=== PATIENT | female | born 1965 | race African-American/Black ===

== ENCOUNTER 2018-06-19 16:00 | Outpatient (RCR) | payer OTHER | END 2018-06-21 | disposition home or self-care (01) | LOC: WSPT | DX: Z47.1 Aftercare following joint replacement surgery (principal); Z96.651 Presence of right artificial knee joint; Z79.899 Other long term (current) drug therapy | CPT/HCPCS: G8978-GP; G8979-GP ==

== ENCOUNTER → 2020-03-12 | Outpatient (CLI) | payer OTHER | LOC: COL.RAD 03-05 08:15 | DX: R94.5 Abnormal results of liver function studies (principal) ==

== ENCOUNTER → 2020-08-18 | Outpatient (CLI) | payer OTHER ==
[2020-08-18 11:09] LABS: MEAN CELL VOLUME 81 fl (80.0-100.0); MEAN CORPUSCULAR HGB CONC 33 g/dl (33.0-37.0); MEAN PLATELET VOLUME 11.3 fl (7.4-10.4); PLATELET COUNT 254 K/mm3 (130-400); RED BLOOD COUNT 3.63 M/mm3 (4.10-5.30); REDCELL DISTRIBUTION WIDTH-CV 16.6 % (11.5-14.5)
[2020-08-18 11:12] LABS: HEMATOCRIT 29.5 % (37.0-47.0); HEMOGLOBIN 9.8 g/dl (12.5-16.0); MEAN CORPUSCULAR HEMOGLOBIN 27 pg (27.0-31.0)
[2020-08-18 11:19] LABS: ALBUMIN 3.8 gm/dL (3.5-5.0); BILIRUBIN,TOTAL 1.9 mg/dL (0.0-1.0); CALCIUM 9.1 mg/dL (8.4-10.2); CREATININE, serum 0.52 (0.52-1.25); POTASSIUM 4.3 mmol/L (3.4-5.0); TOTAL PROTEIN 7.6 gm/dL (6.4-8.2)
[2020-08-18 11:37] LABS: INR 1.3 (0.8-3.0); PROTHROMBIN TIME 14.8 SECONDS (9.7-12.8)
== END ==
LOC: COL.RAD 09:39
PROVIDERS: Internal Medicine Gastroenterology
DX: K74.60 Unspecified cirrhosis of liver (principal)

== ENCOUNTER 2020-11-29 11:24 | Emergency (ER) | payer OTHER ==
[~2020-11-29] VITALS: Ht 180.3 cm; Wt 70.9 kg
[2020-11-29 11:53] LABS: COLLECTION METHOD CATHETER
[2020-11-29 11:58] LABS: BASO # 0.1 (0.0-0.2); BASO % 0.4 % (0.0-2.0); EOS # 0.1 (0.0-0.7); EOS % 0.6 % (0-4.0); GRAN # 10.2 (1.4-6.5); GRAN % 75.2 % (42.2-75.2); LYMPH % 14.8 % (20.0-51.0); MEAN CELL VOLUME 89 fl (80.0-100.0); MEAN CORPUSCULAR HGB CONC 32 g/dl (33.0-37.0); MONO # 1.2 (0.1-0.6); MONO % 8.5 % (1.7-9.3); PLATELET COUNT 254 K/mm3 (130-400); RED BLOOD COUNT 2.13 M/mm3 (4.10-5.30); REDCELL DISTRIBUTION WIDTH-CV 18.4 % (11.5-14.5)
[2020-11-29 12:00] LABS: HEMOGLOBIN 6.1 g/dl (12.5-16.0); MEAN CORPUSCULAR HEMOGLOBIN 29 pg (27.0-31.0)
[2020-11-29 12:04] LABS: PROTHROMBIN TIME 22.1 SECONDS (9.7-12.8)
[2020-11-29 12:08] LABS: MUCOUS Present /lpf; PH 5 (5-8); SQUAMOUS EPITHELIAL None Seen /hpf; URINE APPEARANCE Clear; URINE BACTERIA None Seen /hpf; URINE BILIRUBIN Positive (NEGATIVE); URINE BLOOD Negative (NEGATIVE); URINE COLOR Amber; URINE GLUCOSE Negative (NEGATIVE); URINE KETONE Trace (NEGATIVE); URINE LEUKOCYTE ESTERASE Negative (NEGATIVE); URINE NITRATE Negative (NEGATIVE); URINE PROTEIN(semi-quant) 1+ (NEGATIVE); URINE RBC 0-2 /hpf; URINE UROBILINOGEN >=4.0 mg/dL (NEGATIVE)
[2020-11-29 12:11] LABS: ALANINE AMINOTRANSFERASE 33 U/L (4-34); ALBUMIN 2.6 gm/dL (3.5-5.0); ALKALINE PHOSPHATASE 119 U/L (50-136); ANION GAP 19 mmol/L (7-16); AST,SGOT 86 U/L (15-37); BILIRUBIN,TOTAL 3.1 mg/dL (0.0-1.0); BLOOD UREA NITROGEN 15 mg/dL (7-17); CALCIUM 7.3 mg/dL (8.4-10.2); CARBON DIOXIDE 25 mmol/L (22-30); CHLORIDE 97 mmol/L (98-107); CREATINE KINASE 41 U/L (30-135); CREATININE, serum 0.45 (0.52-1.25); GLUCOSE 94 mg/dL (74-106); LIPASE 31 U/L (23-300); SODIUM 141 mmol/L (137-145); TOTAL PROTEIN 6.7 gm/dL (6.4-8.2)
[2020-11-29 12:13] LABS: ALCOHOL(ethanol),MEDICAL < 10 mg/dL
[2020-11-29 12:15] LABS: POTASSIUM 2.2 mmol/L (3.4-5.0)
[2020-11-29 12:23] LABS: TROPONIN-I < 0.012 ng/mL (0.000-0.035)
[2020-11-29 12:31] LABS: ARTERIAL BLD GAS O2 SATURATION 98.5 % (92-100); ARTERIAL BLD GAS TCO2 CT 21.7; ARTERIAL BLOOD GAS BASE EXCESS 0.4 (-2-2); ARTERIAL BLOOD GAS HCO3 21.1 meq/L (22-26); ARTERIAL BLOOD GAS PO2 116.8 mmHg (80-100)
[2020-11-29 12:32] LABS: ARTERIAL BLOOD GAS PCO2 21.9 mmHg (35-45)
[2020-11-29 13:57] VITALS: BP 117/84; PULSE 90; TEMP 98
[2020-11-29 14:35] VITALS: BP 108/79; PULSE 106; TEMP 98
[2020-11-29 15:45] VITALS: BP 131/89; PULSE 100; TEMP 98
[2020-11-29 16:25] VITALS: BP 117/84; PULSE 90
== END 2020-11-29 16:25 | disposition short-term general hospital (02) ==
LOC: COL.ER 11:24
PROVIDERS: Emergency Medicine; Nurse Practitioner
DX: K92.2 Gastrointestinal hemorrhage, unspecified (principal); E87.6 Hypokalemia; I95.9 Hypotension, unspecified; D64.9 Anemia, unspecified; Z88.8 Allergy status to other drugs, medicaments and biological substances; Z20.822 Contact with and (suspected) exposure to COVID-19
CPT/HCPCS: C9113; J0330; J0696; J2250; J2354; J2370; J2405; J3010; J3480; J7030; J7040; J7050; P9016

== ENCOUNTER → 2020-12-14 | Outpatient (REF) ==
[~2020-12-14] MED LIST: CARAFATE 1GM1 G PO; DINO-LIFE1 CTB PO; FOLIC ACID 40400 MCG PO; K-TAB20 PO; LASIX 40MG TABL40 MG PO; MAALOX ADVANCED1 CTB PO; NATURE'S BLEND100 M2 PO; NEXIUM ORA40 MG/Pack PEG; PROAIR HFA0.09 MG/AC IH; PROZAC 20MG20 MG PO; REMERON SOLTAB30 MG PO; ROXICODONE 55 MG/TAB PO; TYLENOL 325MG325 MG PO; VITAMIN B-625 MG; ZOFRAN INJ4 MG/2 ML IV
[2020-12-14 11:47] LABS: BASO # 0.1 (0.0-0.2); EOS # 0.1 (0.0-0.7); EOS % 1.3 % (0-4.0); GRAN # 5.5 (1.4-6.5); GRAN % 65.7 % (42.2-75.2); LYMPH % 23.2 % (20.0-51.0); MEAN CELL VOLUME 88 fl (80.0-100.0); MEAN CORPUSCULAR HGB CONC 34 g/dl (33.0-37.0); MONO # 0.7 (0.1-0.6); MONO % 8.6 % (1.7-9.3); PLATELET COUNT 140 K/mm3 (130-400); RED BLOOD COUNT 2.53 M/mm3 (4.10-5.30); REDCELL DISTRIBUTION WIDTH-CV 17.1 % (11.5-14.5)
[2020-12-14 11:55] LABS: HEMATOCRIT 22.3 % (37.0-47.0); HEMOGLOBIN 7.5 g/dl (12.5-16.0); MEAN CORPUSCULAR HEMOGLOBIN 30 pg (27.0-31.0)
[2020-12-14 11:56] LABS: ANION GAP 4 mmol/L (7-16); CALCIUM 7.4 mg/dL (8.4-10.2); CARBON DIOXIDE 25 mmol/L (22-30); CHLORIDE 109 mmol/L (98-107); CREATININE, serum 0.41 (0.52-1.25); GLUCOSE 64 mg/dL (74-106); POTASSIUM 3.6 mmol/L (3.4-5.0); SODIUM 137 mmol/L (137-145)
[2020-12-14 11:59] LABS: BLOOD UREA NITROGEN < 2 mg/dL (7-17)
== END ==
LOC: ZLAB.STJ 11:42
PROVIDERS: Family Medicine
DX: K26.9 Duodenal ulcer, unspecified as acute or chronic, without hemorrhage or perforation (principal)

== ENCOUNTER → 2020-12-17 | Outpatient (CLI) | payer OTHER ==
[2020-12-17 13:52] LABS: BASO # 0.1 (0.0-0.2); BASO % 1.3 % (0.0-2.0); EOS # 0.2 (0.0-0.7); EOS % 1.5 % (0-4.0); GRAN % 70.2 % (42.2-75.2); HEMATOCRIT 25.7 % (37.0-47.0); HEMOGLOBIN 8.1 g/dl (12.5-16.0); LYMPH % 19.7 % (20.0-51.0); MEAN CELL VOLUME 89 fl (80.0-100.0); MEAN CORPUSCULAR HEMOGLOBIN 28 pg (27.0-31.0); MEAN CORPUSCULAR HGB CONC 32 g/dl (33.0-37.0); MEAN PLATELET VOLUME 14.3 fl (7.4-10.4); MONO # 0.7 (0.1-0.6); PLATELET COUNT 172 K/mm3 (130-400); REDCELL DISTRIBUTION WIDTH-CV 17.2 % (11.5-14.5)
[2020-12-17 13:56] LABS: ANION GAP 6 mmol/L (7-16); CALCIUM 7.4 mg/dL (8.4-10.2); CARBON DIOXIDE 25 mmol/L (22-30); CHLORIDE 106 mmol/L (98-107); CREATININE, serum 0.51 (0.52-1.25); GLUCOSE 104 mg/dL (74-106); SODIUM 137 mmol/L (137-145)
[2020-12-17 13:57] LABS: BLOOD UREA NITROGEN < 2 mg/dL (7-17)
[2020-12-17 14:02] LABS: POTASSIUM 2.5 mmol/L (3.4-5.0)
== END ==
LOC: ZLAB.STJ 13:17
PROVIDERS: Family Medicine
DX: D62 Acute posthemorrhagic anemia (principal)

== ENCOUNTER → 2020-12-21 | Outpatient (REF) ==
[2020-12-21 13:13] LABS: BASO # 0.1 (0.0-0.2); BASO % 0.9 % (0.0-2.0); EOS # 0.1 (0.0-0.7); GRAN # 5.9 (1.4-6.5); GRAN % 66.5 % (42.2-75.2); LYMPH # 2.1 (1.2-3.4); LYMPH % 23.7 % (20.0-51.0); MEAN CELL VOLUME 87 fl (80.0-100.0); MEAN CORPUSCULAR HGB CONC 32 g/dl (33.0-37.0); MEAN PLATELET VOLUME 12.8 fl (7.4-10.4); MONO # 0.7 (0.1-0.6); MONO % 7.4 % (1.7-9.3); PLATELET COUNT 166 K/mm3 (130-400); RED BLOOD COUNT 2.76 M/mm3 (4.10-5.30)
[2020-12-21 13:14] LABS: HEMATOCRIT 24.1 % (37.0-47.0); HEMOGLOBIN 7.8 g/dl (12.5-16.0); MEAN CORPUSCULAR HEMOGLOBIN 28 pg (27.0-31.0)
[2020-12-21 13:21] LABS: ANION GAP 5 mmol/L (7-16); CALCIUM 7.2 mg/dL (8.4-10.2); CARBON DIOXIDE 27 mmol/L (22-30); CHLORIDE 105 mmol/L (98-107); CREATININE, serum 0.46 (0.52-1.25); GLUCOSE 120 mg/dL (74-106); SODIUM 137 mmol/L (137-145)
[2020-12-21 13:26] LABS: BLOOD UREA NITROGEN < 2 mg/dL (7-17)
[2020-12-21 13:27] LABS: POTASSIUM 2.6 mmol/L (3.4-5.0)
== END ==
LOC: ZLAB.STJ 13:07
PROVIDERS: Family Medicine
DX: E87.6 Hypokalemia (principal)

== ENCOUNTER → 2020-12-24 | Outpatient (CLI) | payer OTHER ==
[2020-12-24 16:25] LABS: ALANINE AMINOTRANSFERASE 35 U/L (4-34); ALBUMIN 2.2 gm/dL (3.5-5.0); ALKALINE PHOSPHATASE 132 U/L (50-136); ANION GAP 7 mmol/L (7-16); AST,SGOT 65 U/L (15-37); BILIRUBIN,TOTAL 2.4 mg/dL (0.0-1.0); CALCIUM 7.7 mg/dL (8.4-10.2); CARBON DIOXIDE 25 mmol/L (22-30); CHLORIDE 106 mmol/L (98-107); CREATININE, serum 0.55 (0.52-1.25); GLUCOSE 118 mg/dL (74-106); POTASSIUM 3.5 mmol/L (3.4-5.0); SODIUM 138 mmol/L (137-145); TOTAL PROTEIN 6.6 gm/dL (6.4-8.2)
[2020-12-24 16:26] LABS: BLOOD UREA NITROGEN < 2 mg/dL (7-17)
== END ==
LOC: ZLAB.STJ 13:19
PROVIDERS: Family Medicine
DX: K70.9 Alcoholic liver disease, unspecified (principal); F10.20 Alcohol dependence, uncomplicated; K91.2 Postsurgical malabsorption, not elsewhere classified; I27.20 Pulmonary hypertension, unspecified; D62 Acute posthemorrhagic anemia; E87.6 Hypokalemia; E55.9 Vitamin D deficiency, unspecified; D52.0 Dietary folate deficiency anemia; E44.0 Moderate protein-calorie malnutrition; F32.9 Major depressive disorder, single episode, unspecified; R57.1 Hypovolemic shock; K25.2 Acute gastric ulcer with both hemorrhage and perforation; R26.1 Paralytic gait; R26.81 Unsteadiness on feet; Z98.84 Bariatric surgery status; Z79.899 Other long term (current) drug therapy

== ENCOUNTER → 2020-12-28 | Outpatient (CLI) | payer OTHER ==
[2020-12-28 10:25] LABS: BASO # 0.1 (0.0-0.2); BASO % 1.1 % (0.0-2.0); EOS # 0.1 (0.0-0.7); EOS % 0.7 % (0-4.0); GRAN # 6.6 (1.4-6.5); GRAN % 67.9 % (42.2-75.2); LYMPH # 2.2 (1.2-3.4); LYMPH % 22.9 % (20.0-51.0); MEAN CELL VOLUME 84 fl (80.0-100.0); MEAN CORPUSCULAR HGB CONC 33 g/dl (33.0-37.0); MONO # 0.7 (0.1-0.6); PLATELET COUNT 109 K/mm3 (130-400); RED BLOOD COUNT 2.75 M/mm3 (4.10-5.30); REDCELL DISTRIBUTION WIDTH-CV 17.1 % (11.5-14.5)
[2020-12-28 10:28] LABS: ANION GAP 8 mmol/L (7-16); CALCIUM 7.7 mg/dL (8.4-10.2); CARBON DIOXIDE 24 mmol/L (22-30); CHLORIDE 104 mmol/L (98-107); CREATININE, serum 0.58 (0.52-1.25); GLUCOSE 78 mg/dL (74-106); POTASSIUM 3.9 mmol/L (3.4-5.0); SODIUM 136 mmol/L (137-145)
[2020-12-28 10:30] LABS: BLOOD UREA NITROGEN < 2 mg/dL (7-17)
[2020-12-28 11:57] LABS: HEMATOCRIT 23.1 % (37.0-47.0); HEMOGLOBIN 7.5 g/dl (12.5-16.0); MEAN CORPUSCULAR HEMOGLOBIN 27 pg (27.0-31.0)
== END ==
LOC: ZLAB.STJ 09:49
PROVIDERS: Family Medicine
DX: I27.20 Pulmonary hypertension, unspecified (principal)

== ENCOUNTER → 2020-12-31 | Outpatient (CLI) | payer OTHER ==
[2020-12-31 17:04] LABS: BASO # 0.1 (0.0-0.2); BASO % 0.8 % (0.0-2.0); EOS # 0.1 (0.0-0.7); EOS % 0.6 % (0-4.0); GRAN # 8.9 (1.4-6.5); GRAN % 72.6 % (42.2-75.2); LYMPH # 2.3 (1.2-3.4); MEAN CELL VOLUME 82 fl (80.0-100.0); MEAN CORPUSCULAR HGB CONC 33 g/dl (33.0-37.0); MONO # 0.8 (0.1-0.6); MONO % 6.5 % (1.7-9.3); PLATELET COUNT 134 K/mm3 (130-400); RED BLOOD COUNT 2.98 M/mm3 (4.10-5.30); REDCELL DISTRIBUTION WIDTH-CV 17.3 % (11.5-14.5)
[2020-12-31 17:06] LABS: HEMATOCRIT 24.3 % (37.0-47.0); MEAN CORPUSCULAR HEMOGLOBIN 27 pg (27.0-31.0)
[2020-12-31 17:09] LABS: CALCIUM 7.7 mg/dL (8.4-10.2); CREATININE, serum 0.84 (0.52-1.25); POTASSIUM 3.7 mmol/L (3.4-5.0)
== END ==
LOC: ZLAB.STJ 16:44
PROVIDERS: Family Medicine
DX: E87.6 Hypokalemia (principal)

== ENCOUNTER 2021-01-02 08:02 | Inpatient (IN) | payer OTHER ==
[2021-01-02] VITALS (313 sets, daily range): BP systolic 87–115; BP diastolic 51–73; PULSE 113–132; TEMP 97.2–99; O2SAT 32–100
[~2021-01-02] VITALS: Ht 167.6 cm; Wt 94.5 kg
[2021-01-02 08:25] LABS: BASO # 0.1 (0.0-0.2); BASO % 0.9 % (0.0-2.0); EOS % 0.4 % (0-4.0); GRAN # 8.2 (1.4-6.5); GRAN % 72.1 % (42.2-75.2); LYMPH # 2.1 (1.2-3.4); LYMPH % 18.3 % (20.0-51.0); MEAN CELL VOLUME 80 fl (80.0-100.0); MEAN CORPUSCULAR HGB CONC 34 g/dl (33.0-37.0); MONO # 0.9 (0.1-0.6); MONO % 7.5 % (1.7-9.3); PLATELET COUNT 129 K/mm3 (130-400); RED BLOOD COUNT 2.85 M/mm3 (4.10-5.30); REDCELL DISTRIBUTION WIDTH-CV 17.6 % (11.5-14.5)
[2021-01-02 08:27] LABS: HEMATOCRIT 22.9 % (37.0-47.0); HEMOGLOBIN 7.7 g/dl (12.5-16.0); MEAN CORPUSCULAR HEMOGLOBIN 27 pg (27.0-31.0)
[2021-01-02 08:39] LABS: ALBUMIN 2.2 gm/dL (3.5-5.0); CALCIUM 7.6 mg/dL (8.4-10.2); CREATININE, serum 0.97 (0.52-1.25); POTASSIUM 3.3 mmol/L (3.4-5.0); TOTAL PROTEIN 7.3 gm/dL (6.4-8.2)
[2021-01-02 09:00] LABS: MUCOUS Present /lpf; PH 5 (5-8); SQUAMOUS EPITHELIAL 0-2 /hpf; URINE APPEARANCE Hazy; URINE BACTERIA Many /hpf; URINE BILIRUBIN Positive (NEGATIVE); URINE BLOOD 1+ (NEGATIVE); URINE COLOR Amber; URINE GLUCOSE Negative (NEGATIVE); URINE KETONE Negative (NEGATIVE); URINE LEUKOCYTE ESTERASE Trace (NEGATIVE); URINE NITRATE Negative (NEGATIVE); URINE PROTEIN(semi-quant) 1+ (NEGATIVE); URINE UROBILINOGEN >=4.0 mg/dL (NEGATIVE)
[2021-01-02 09:12] LABS: BILIRUBIN UNCONJUGATED 1.3 mg/dL (0.0-1.1); BILIRUBIN,TOTAL 3.3 mg/dL (0.0-1.0)
[2021-01-02 09:54] LABS: ARTERIAL BLD GAS O2 SATURATION 94.2 % (92-100); ARTERIAL BLD GAS TCO2 CT 22.6; ARTERIAL BLOOD GAS HCO3 21.7 meq/L (22-26); ARTERIAL BLOOD GAS PCO2 28.5 mmHg (35-45); ARTERIAL BLOOD GAS PO2 71.6 mmHg (80-100)
[2021-01-02 11:35] LABS: PERITONEAL -POLYMORPHONUCLEAR 36.4 % (0-25); PERITONEAL FLUID RBC 1000 /mm3 (0-0)
[2021-01-02] MEDS ORDERED: PROAIR HFA0.09 MG/AC IH (11:43)
[2021-01-02] MEDS ORDERED: NEXIUM ORA40 MG/Pack PEG (11:44)
[2021-01-02] MEDS ORDERED: PROZAC 20MG20 MG PO (11:45)
[2021-01-02] MEDS ORDERED: FOLIC ACID 40400 MCG PO (11:45)
[2021-01-02] MEDS ORDERED: REMERON SOLTAB30 MG PO (11:46)
[2021-01-02] MEDS ORDERED: ZOFRAN INJ4 MG/2 ML IV (11:47)
[2021-01-02] MEDS ORDERED: ROXICODONE 55 MG/TAB PO (11:48)
[2021-01-02] MEDS ORDERED: CARAFATE 1GM1 G PO (11:48)
[2021-01-02] MEDS ORDERED: NATURE'S BLEND100 M2 PO (11:49)
[2021-01-02] MEDS ORDERED: VITAMIN B-625 MG (11:49)
[2021-01-02] MEDS ORDERED: TYLENOL 325MG325 MG PO (11:50)
[2021-01-02] MEDS ORDERED: LASIX 40MG TABL40 MG PO (11:52)
[2021-01-02] MEDS ORDERED: K-TAB20 PO (11:52)
--- NOTE | 2021-01-02 13:00 | NUR ---
PT ARRIVED FROM ED FOR WEAKNESS, AMS, SEPSIS. PT IS LETHARGIC. PT RESPONDS TO VOICE AND CAN FOLLOW SOME COMMANDS. PT UNABLE TO STATE BIRTHDAY, TODAYS DATE OR LOCATION. PT'S BP IN THE 80'S, ST ON TELE IN THE 120'S AND BG 69. CALLED AND NOTIFIED. ORDER FOR NS BOLUS 500. WILL CONTINUE TO [facility].
[2021-01-02] MEDS ORDERED: DINO-LIFE1 CTB PO (14:14)
[2021-01-02] MEDS ORDERED: MAALOX ADVANCED1 CTB PO (14:15)
[2021-01-02 15:00] LABS: INR 3.9 (0.8-3.0); PROTHROMBIN TIME 43.8 SECONDS (9.7-12.8)
--- NOTE | 2021-01-02 15:35 | NUR ---
BEDSIDE TO EVALUATE PT.
--- NOTE | 2021-01-02 17:00 | NUR ---
[facility] MEDICAL RECORDS CALLED AND MESSAGE LEFT FOR REQUEST FOR RECORDS. WILL ENDORSE TO FOLLOWING RN TO FOLLOW UP.
--- NOTE | 2021-01-02 20:00 | NUR ---
Assessment complete. Pt is resting in the bed moaning and appears uncomfortable. Reposonsive to voice but will not answer questions. Pt repositioned in bed. Call light within reach.
[2021-01-03] VITALS (535 sets, daily range): BP systolic 93–118; BP diastolic 57–74; PULSE 106–117; TEMP 95.6–98.5; O2SAT 94–100
[2021-01-03 05:39] LABS: BASO # 0.1 (0.0-0.2); BASO % 0.5 % (0.0-2.0); EOS # 0.1 (0.0-0.7); EOS % 0.6 % (0-4.0); GRAN # 7.3 (1.4-6.5); GRAN % 75.4 % (42.2-75.2); LYMPH # 1.8 (1.2-3.4); LYMPH % 18.5 % (20.0-51.0); MEAN CELL VOLUME 79 fl (80.0-100.0); MEAN CORPUSCULAR HGB CONC 35 g/dl (33.0-37.0); MONO # 0.4 (0.1-0.6); MONO % 4.3 % (1.7-9.3); PLATELET COUNT 79 K/mm3 (130-400); RED BLOOD COUNT 2.83 M/mm3 (4.10-5.30); REDCELL DISTRIBUTION WIDTH-CV 17.8 % (11.5-14.5)
[2021-01-03 05:45] LABS: HEMATOCRIT 22.3 % (37.0-47.0); HEMOGLOBIN 7.7 g/dl (12.5-16.0); MEAN CORPUSCULAR HEMOGLOBIN 27 pg (27.0-31.0)
[2021-01-03 05:49] LABS: INR 3.8 (0.8-3.0); PROTHROMBIN TIME 43.3 SECONDS (9.7-12.8)
[2021-01-03 05:51] LABS: BILIRUBIN,TOTAL 3.3 mg/dL (0.0-1.0); CALCIUM 7.1 mg/dL (8.4-10.2); CREATININE, serum 0.92 (0.52-1.25); MAGNESIUM 1.6 mg/dL (1.6-2.3); POTASSIUM 4.2 mmol/L (3.4-5.0); TOTAL PROTEIN 6.5 gm/dL (6.4-8.2)
--- NOTE | 2021-01-03 08:00 | NUR ---
Report recieved from Daniel OLEA all questions answered. Patient found laying in bed asleep. Arroused to speech, moaning. Does not answered questions appropriately, responds with moans. Patient remains tachycardic at this time, HR 107. Heart sounds regular, lung sounds diminished in bilateral bases, bowel sounds active. Stomach distended and firm, bandaid noted CDI. IV fluids infusing to left forearm without difficulty. Bilateral SCD in place +2 edema noted to lower extremities. Blood sugar 72. All safety maintained. Will continue to monitor.
--- NOTE | 2021-01-03 09:22 | NUR ---
DURING PHYSICAL THERAPY PATIENT MOANING AND SAYING "OW". CONTINUES TO MOAN FOLLOWING SESSION. MEDICATION GIVEN PER ORDERS. WILL CONTINUE TO MONITOR.
--- NOTE | 2021-01-03 09:57 | NUR ---
JOSÉ spoke with patient's sister Shilpa (p# [phone]) and mother Cassie (same #) who are driving to [place] from [place]. Patient lives independently and alone at home in [place]. Patient does not have DPOA at this time. Patient is unable to appropriate answer questions or fill out paperwork. [facility] Patient uses no DME per family recollection. Patient is not able to verbalize plan. Family would like the hospital to have patient transferred to [place] for care. JOSÉ reported that she would be able to speak with RN, MD, and JOSÉ's cook supervisor regarding request; however, this may not be feasible. Family is adamant that they want her transferred and feel JOSÉ, as showcase maker, should be able to coordinate these services. JOSÉ spoke with cook supervisor Saima, who will communicate with the family on Thursday 01/04. Social work will continue to follow.
[2021-01-03 09:59] LABS: COLLECTION METHOD CATHETER
--- NOTE | 2021-01-03 11:20 | NUR ---
Rectal tube instered per MD orders for administration of Lactulose. Patient is refusing PO fluids at this time.
--- NOTE | 2021-01-03 13:30 | NUR ---
Paitient brought down to CT via bed for CT of head without difficulty. Patient placed back in room 6 on monitors, vital signs stable.
--- NOTE | 2021-01-03 14:30 | NUR ---
MD made aware of low urinary output. Orders recieved for 500ml bolus of NS followed by infusing at 125ml hr. Orders read back and confirmed. Will continue to monitor.
--- NOTE | 2021-01-03 16:30 | NUR ---
MD made aware of blood sugar of 60. Administer 1amp of Dextrose now and switch IV fluids to D5 1/2 NS at 100ml/hr. Orders read back and confirmed.
--- NOTE | 2021-01-03 18:15 | NUR ---
MD made aware of lack of output. No new orders at this time. Will continue to monitor.
[2021-01-04] VITALS (603 sets, daily range): BP systolic 92–115; BP diastolic 69–89; PULSE 100–107; TEMP 97–97.8; O2SAT 70–100
--- NOTE | 2021-01-04 00:22 | NUR ---
Prior to taking over care, pt has been yelling out and moaning incomprehensible sounds. Pt now able to make eye contact and yell out "help me, help me, mommy help me". Reorientation provided with no recall. MARÍA Arvizu aware. During turns and blood sugar check attempts, pt becomes very aggitated flailing arms and legs and turning self left and right in bed.
[2021-01-04 05:36] LABS: BASO # 0.1 (0.0-0.2); BASO % 0.6 % (0.0-2.0); EOS # 0.1 (0.0-0.7); EOS % 0.6 % (0-4.0); GRAN # 8.7 (1.4-6.5); GRAN % 70.9 % (42.2-75.2); LYMPH # 2.5 (1.2-3.4); LYMPH % 20.1 % (20.0-51.0); MEAN CELL VOLUME 80 fl (80.0-100.0); MEAN CORPUSCULAR HGB CONC 34 g/dl (33.0-37.0); MONO # 0.9 (0.1-0.6); MONO % 7.5 % (1.7-9.3); RED BLOOD COUNT 3.27 M/mm3 (4.10-5.30); REDCELL DISTRIBUTION WIDTH-CV 18.5 % (11.5-14.5)
--- NOTE | 2021-01-04 05:40 | NUR ---
SpO2 86-88% on 2L NC. Pt drowsy from IV morphine. Pt able to wake up, open eyes, no change in previous neuro assessement - however prior to administering IV morphine pt able to speak clearly and complain of back and abdominal pain. Prior to this, pt only yelled and moaned out loudly with incomprehensible words. Pt breathing through mouth - oxymask 6L/min applied - MARÍA Arvizu and YudithRT notified. SpO2 now 95-99%
[2021-01-04 05:43] LABS: INR 3.1 (0.8-3.0); PROTHROMBIN TIME 34.9 SECONDS (9.7-12.8)
[2021-01-04 05:44] LABS: CALCIUM 7.3 mg/dL (8.4-10.2); CREATININE, serum 1.06 (0.52-1.25); MAGNESIUM 1.7 mg/dL (1.6-2.3); POTASSIUM 3.4 mmol/L (3.4-5.0); TOTAL PROTEIN 6.6 gm/dL (6.4-8.2)
[2021-01-04 05:49] LABS: HEMATOCRIT 26.3 % (37.0-47.0); HEMOGLOBIN 8.9 g/dl (12.5-16.0); MEAN CORPUSCULAR HEMOGLOBIN 27 pg (27.0-31.0)
[2021-01-04 05:52] LABS: PLATELET COUNT 55 K/mm3 (130-400)
--- NOTE | 2021-01-04 07:00 | NUR ---
Report received from EMMIE Crooks. pT in bed resting with eyes closed, will conitnue to monitor.
--- NOTE | 2021-01-04 09:00 | NUR ---
Assessment charted. Pt turned for comfort, rectal tube draining meier clear stool to DD in bag at side of bed, regalado draining dark cloudy urine to DD in bag at side of bed. Pt able to verbalize back pain, PRN morphine provided per request. Pt tolerated well and appears much more comfortable within 30 minutes of medication. Abd is distended and firm, hypoactive bowel sounds throughout. Generalized edema to body of +2 and BLE +3. IVF to LFA with potassium chloride infusing as well. Sister at bedside. Pt not able to answer any orientation questions, did nod head yes when asked if she wanted glasses on so she appears to be able to comprehend and respond to some simple questions but not resopnding to orientation questions.
--- NOTE | 2021-01-04 11:27 | NUR ---
Loading Machine Adjuster attended clinical rounds with the team. The patient's sister, Ileana was present. Ileana would like the patient transferred to the [facility] for further care. JOSÉ contacted Nathaly [facility] student development coordinator. Nathaly requested clinical information then a decision will be made. JOSÉ faxed patient clinical information to Nathaly. Nathaly reports the patient may be responsible for the transporation cost. JOSÉ updated Ileana with the above information. JOSÉ collaborated the above information with the team. [facility].
--- NOTE | 2021-01-04 13:04 | NUR ---
Went into room with student nreric to place NG tube, pt able to arouse to us and when asked if we could place the tube she stated "no", asked her three more times and clearly she responded "no", when asked where we are she states "hospital". Called [facility] and called family and the family does not want to force the NG if she is conscious enough to refuse. Will continue to monitor.
--- NOTE | 2021-01-04 13:51 | NUR ---
Romana RN from the [facility] contacted this Associate Financial Advisor regarding the patient transfer. Romana reports they [facility] is unable to accept the patient for transfer due to her level of care. JOSÉ contacted the patient's sister, Ileana to provide update. JOSÉ collaborated the above information to the hospitalist and the patient's nurse.
--- NOTE | 2021-01-04 17:05 | NUR ---
Pt turned on L side and provided lactulose enema. Pt tolerating well, will wait 1 hour before releasing clamp on rectal tube to maximize ammonia absorption.
--- NOTE | 2021-01-04 18:30 | NUR ---
Pt has been more alert this afternoon, able to answer some questions but still moaning often and not able to respond to orientation questions. Resting in bed, turned q2h for shift. Rectal tube draining meier liquid stool. Small amount of very dark urine out over shift. Will monitor and give report to nightshift nurse who will resume care.
--- NOTE | 2021-01-04 20:00 | NUR ---
Assessment complete. Pt is lying in the bed with occassional moaning noted. Repositioned in bed. Call light within reach.
[2021-01-05] VITALS (647 sets, daily range): BP systolic 88–111; BP diastolic 61–81; PULSE 101–108; TEMP 97.4–97.6; O2SAT 74–100
[2021-01-05 06:11] LABS: BASO # 0.1 (0.0-0.2); BASO % 0.6 % (0.0-2.0); EOS # 0.1 (0.0-0.7); EOS % 0.8 % (0-4.0); GRAN % 69.6 % (42.2-75.2); LYMPH # 2.3 (1.2-3.4); LYMPH % 19.7 % (20.0-51.0); MEAN CELL VOLUME 80 fl (80.0-100.0); MEAN CORPUSCULAR HGB CONC 33 g/dl (33.0-37.0); MONO % 8.4 % (1.7-9.3); PLATELET COUNT 94 K/mm3 (130-400); RED BLOOD COUNT 3.12 M/mm3 (4.10-5.30); REDCELL DISTRIBUTION WIDTH-CV 18.9 % (11.5-14.5)
[2021-01-05 06:16] LABS: HEMATOCRIT 24.9 % (37.0-47.0); HEMOGLOBIN 8.3 g/dl (12.5-16.0); MEAN CORPUSCULAR HEMOGLOBIN 27 pg (27.0-31.0)
[2021-01-05 06:25] LABS: CALCIUM 7.4 mg/dL (8.4-10.2); CREATININE, serum 0.97 (0.52-1.25); POTASSIUM 4.4 mmol/L (3.4-5.0)
--- NOTE | 2021-01-05 07:30 | NUR ---
Patient resting in bed. Moaning occasionally out loud and also with any touching of lower exremities. Patient able to tell this nurse that she was in the hospital and was able to wiggle her toes and squeeze this nurses's hands on command. Was not able to anwer any other questions or follow any other commands at this time.
--- NOTE | 2021-01-05 10:33 | NUR ---
Daughter at bedside; updated on plan of care. Discussed insertion of a picc line for TPN administration. Daughter agreeable and will sign consent form.
[2021-01-05 11:12] LABS: ALBUMIN 1.8 gm/dL (3.5-5.0); BILIRUBIN,TOTAL 2.4 mg/dL (0.0-1.0); CALCIUM 7.5 mg/dL (8.4-10.2); CREATININE, serum 0.98 (0.52-1.25); MAGNESIUM 1.9 mg/dL (1.6-2.3); PHOSPHOROUS 4.1 mg/dL (2.5-4.5); POTASSIUM 4.5 mmol/L (3.4-5.0); TOTAL PROTEIN 5.9 gm/dL (6.4-8.2)
[2021-01-05 11:20] LABS: PRE ALBUMIN 3.5 mg/dL (17.6-36.0)
--- NOTE | 2021-01-05 13:09 | NUR ---
Dr. Lam at bedside discussing plan of care with patient's sister.
--- NOTE | 2021-01-05 14:17 | NUR ---
German with [facility] contacted this Grinding Supervisor [facility] patient[facility] JOSÉ faxed updates to German.
[2021-01-06] VITALS (841 sets, daily range): BP systolic 88–103; BP diastolic 61–71; PULSE 93–111; TEMP 97.2–97.9; O2SAT 82–99
[2021-01-06 04:59] LABS: BASO # 0.1 (0.0-0.2); BASO % 0.9 % (0.0-2.0); EOS # 0.2 (0.0-0.7); EOS % 1.6 % (0-4.0); GRAN # 6.1 (1.4-6.5); GRAN % 63.3 % (42.2-75.2); LYMPH # 2.1 (1.2-3.4); LYMPH % 21.6 % (20.0-51.0); MEAN CELL VOLUME 80 fl (80.0-100.0); MEAN CORPUSCULAR HGB CONC 33 g/dl (33.0-37.0); MONO # 1.2 (0.1-0.6); MONO % 12.2 % (1.7-9.3); PLATELET COUNT 59 K/mm3 (130-400); RED BLOOD COUNT 2.59 M/mm3 (4.10-5.30); REDCELL DISTRIBUTION WIDTH-CV 18.5 % (11.5-14.5)
[2021-01-06 05:02] LABS: HEMATOCRIT 20.7 % (37.0-47.0); MEAN CORPUSCULAR HEMOGLOBIN 27 pg (27.0-31.0)
[2021-01-06 05:03] LABS: HEMOGLOBIN 6.9 g/dl (12.5-16.0)
[2021-01-06 05:10] LABS: CALCIUM 7.3 mg/dL (8.4-10.2); CREATININE, serum 0.84 (0.52-1.25); MAGNESIUM 1.8 mg/dL (1.6-2.3); PHOSPHOROUS 3.6 mg/dL (2.5-4.5); POTASSIUM 3.7 mmol/L (3.4-5.0)
[2021-01-06 05:16] LABS: PRE ALBUMIN 3.1 mg/dL (17.6-36.0)
--- NOTE | 2021-01-06 07:30 | NUR ---
Resting in bed; moans when touched or cares are provided, otherwise appears to be resting comforably. Will open eyes and will squeeze hands on command but does not answer verbal questions appropriately. Will continue to monitor.
--- NOTE | 2021-01-06 10:00 | NUR ---
Patient appears slightly more alert than yesterday. Able to stay awake longer when being addressed. Also able to answer a few questions and engage in brief conversations with this nurse. Will continue to monitor.
--- NOTE | 2021-01-06 12:56 | NUR ---
Speech therapist at bedside to attempt swallow study.
[2021-01-06 13:17] LABS: HEMATOCRIT 22.3 % (37.0-47.0); HEMOGLOBIN 7.2 g/dl (12.5-16.0)
[2021-01-06 13:23] LABS: INR 2.7 (0.8-3.0); PROTHROMBIN TIME 30.8 SECONDS (9.7-12.8)
--- NOTE | 2021-01-06 13:30 | NUR ---
Per speech therapist will continue to keep NPO, but will encourage mouth swabs to keep mouth moist. Will attempt swallow eval again tomorrow.
--- NOTE | 2021-01-06 19:10 | NUR ---
Received report from EMMIE Payan. Patient resting quietly in bed watching TV. Patient opening eyes spontaneously and following verbal commands. She is alert and conversing with staff. Some confused speech noted. Vitals within normal limits. Reports pain in legs; she is repositioned for comfort. Oral care performed. No further needs noted at this time.
--- NOTE | 2021-01-06 19:15 | NUR ---
Report given to EMMIE Mello. Patient care transfered.
[2021-01-07] VITALS (377 sets, daily range): BP systolic 78–111; BP diastolic 36–63; PULSE 100–117; TEMP 97.4–99.1; O2SAT 92–98
[2021-01-07 05:26] LABS: BASO # 0.1 (0.0-0.2); BASO % 0.9 % (0.0-2.0); EOS # 0.1 (0.0-0.7); EOS % 1.3 % (0-4.0); GRAN # 6.4 (1.4-6.5); GRAN % 62.5 % (42.2-75.2); LYMPH # 2.2 (1.2-3.4); LYMPH % 21.4 % (20.0-51.0); MEAN CELL VOLUME 82 fl (80.0-100.0); MEAN CORPUSCULAR HGB CONC 33 g/dl (33.0-37.0); MONO # 1.4 (0.1-0.6); MONO % 13.4 % (1.7-9.3); PLATELET COUNT 55 K/mm3 (130-400); RED BLOOD COUNT 2.61 M/mm3 (4.10-5.30); REDCELL DISTRIBUTION WIDTH-CV 18.6 % (11.5-14.5)
[2021-01-07 05:29] LABS: HEMATOCRIT 21.5 % (37.0-47.0); HEMOGLOBIN 7.1 g/dl (12.5-16.0); MEAN CORPUSCULAR HEMOGLOBIN 27 pg (27.0-31.0)
[2021-01-07 05:40] LABS: CALCIUM 7.5 mg/dL (8.4-10.2); CREATININE, serum 0.81 (0.52-1.25); MAGNESIUM 1.9 mg/dL (1.6-2.3); PHOSPHOROUS 2.9 mg/dL (2.5-4.5); POTASSIUM 4.3 mmol/L (3.4-5.0)
--- NOTE | 2021-01-07 07:00 | NUR ---
REPORT RECEIVED FROM GAVIOTA OLEA. PT RESTING IN BED. TPN RUNNING THROUGH PICC. VSS. WILL CONTINUE TO MONITOR.
--- NOTE | 2021-01-07 10:09 | NUR ---
Retail Field Merchandiser staffed with Dr. Bishop and he requested a referral be sent to [facility]. Referral faxed. JOSÉ then contacted Richard with [facility], he will review the referral then inform JOSÉ of decision.
--- NOTE | 2021-01-07 11:12 | NUR ---
The patient has orders to transfer to the medical floor. JOSÉ faxed updates to German at [facility].
--- NOTE | 2021-01-07 11:12 | NUR ---
REPORT GIVEN TO MICHELLE AND HIS STUDENT OSMANI. ALL QUESIONS ANSWERED. PT TRANSFERED TO FLOOR BED AND TAKEN UPSTAIRS BY MICHELLE.
--- NOTE | 2021-01-07 12:26 | NUR ---
Oral care given, wiped down patient's face for comfort measures, sister at bedside.
[2021-01-07 20:28] LABS: HEMATOCRIT 20.2 % (37.0-47.0); HEMOGLOBIN 6.3 g/dl (12.5-16.0)
--- NOTE | 2021-01-07 20:28 | NUR ---
CRITICAL LAB- HEMOGLOBIN 6.3 ORDERS NOTED
[2021-01-08] VITALS (15 sets, daily range): BP systolic 80–101; BP diastolic 51–65; PULSE 105–116; TEMP 98.1–98.7
--- NOTE | 2021-01-08 00:52 | NUR ---
BLOOD TRANSFUSION COMPLETE AT 0006 ON 01/08/2021. PATIENT TOLERATED WELL. NO ADVERSE REACTION NOTED OR REPORTED BY PATIENT.
[2021-01-08 01:46] LABS: HEMATOCRIT 21.6 % (37.0-47.0); HEMOGLOBIN 7.2 g/dl (12.5-16.0)
[2021-01-08 06:47] LABS: MEAN CELL VOLUME 84 fl (80.0-100.0); MEAN CORPUSCULAR HGB CONC 32 g/dl (33.0-37.0); PLATELET COUNT 51 K/mm3 (130-400); RED BLOOD COUNT 2.55 M/mm3 (4.10-5.30)
[2021-01-08 06:52] LABS: HEMATOCRIT 21.4 % (37.0-47.0); HEMOGLOBIN 6.9 g/dl (12.5-16.0); MEAN CORPUSCULAR HEMOGLOBIN 27 pg (27.0-31.0)
[2021-01-08 06:55] LABS: ALBUMIN 1.5 gm/dL (3.5-5.0); BILIRUBIN,TOTAL 2.7 mg/dL (0.0-1.0); CALCIUM 7.3 mg/dL (8.4-10.2); CREATININE, serum 0.81 (0.52-1.25); POTASSIUM 4.7 mmol/L (3.4-5.0); TOTAL PROTEIN 4.9 gm/dL (6.4-8.2)
[2021-01-08 07:00] LABS: INR 2.6 (0.8-3.0); PROTHROMBIN TIME 28.9 SECONDS (9.7-12.8)
[2021-01-08 07:37] LABS: BAND 3 % (0-10); LYMPHOCYTE 14 % (20.0-51.0); NEUTROPHILS 81 % (42.0-75.2); NUCLEATED RED BLOOD CELL 1 (0-6); PLATELET ESTIMATE DECREASED (NORMAL)
[2021-01-08 07:38] LABS: SCHISTOCYTES 1+; TARGET CELLS 2+
--- NOTE | 2021-01-08 07:57 | NUR ---
Pt has a student nurse caring for her today, pt is laying in bed upon entry. She arouses to voice, shakes her head no when asked in pain. Is unable to tell me where she is. TPN infusing into R PICC without complications. Shane catheter DD, rectal tube in place. Continues to have liquid stool output. Small tear in tubing but manageable at this time. SCD's in place, repositioning complete.
--- NOTE | 2021-01-08 09:27 | NUR ---
Richard with [facility] contacted this Wood Machinist regarding authorization. Richard reports that will not review the case until Monday, 01/11. Richard would like updates on Monday and he will tentatively visit the patient on Monday. JOSÉ collaborated the above information with medical floor JOSÉ.
--- NOTE | 2021-01-08 10:14 | NUR ---
Rectal tube replaced, d/t tear in tubing. Pt tolerated okay. Does have enlarged hemmorhoids which made it uncomfortable to change. Repositioning provided. Pt calmed down at this time. POC discussed with the sister.
--- NOTE | 2021-01-08 13:47 | NUR ---
Primary nurse was assisted with [id number] patient care by [employer] [employer] [employer] [facility] [employer] student Yoselin Rosario and [facility] [employer] [facility] [employer] instructor Kamini Gayle MSN, RN.
--- NOTE | 2021-01-08 13:59 | NUR ---
Primary nurse was assisted with [id number] patient care by [facility] student Kisha Bains and [facility] instructor Kamini Gayle MSN, RN.
--- NOTE | 2021-01-08 15:05 | NUR ---
Blood transfusion started. Patient VS monitored and stable. IV CDI. Call light within reach
[2021-01-08 16:13] LABS: HEMATOCRIT 25.3 % (37.0-47.0); HEMOGLOBIN 8.2 g/dl (12.5-16.0)
--- NOTE | 2021-01-08 16:46 | NUR ---
Sat Math Tutor faxed updates to German at [facility]. JOSÉ updated Hospitalist that patient will not have auth at [facility] over the weekend.
--- NOTE | 2021-01-08 19:21 | NUR ---
Patient completed one unit blood transfusion and tolerated well VSS. IV CDI. Rectal tube intact and regalado edgardo urine, clear. HOB elevated. No further needs expressed from the patient. Call light within reach
[2021-01-09] VITALS (127 sets, daily range): BP systolic 87–111; BP diastolic 20–76; PULSE 87–123; TEMP 97.5–98.2; O2SAT 93–100
[2021-01-09 05:48] LABS: MEAN CELL VOLUME 86 fl (80.0-100.0); MEAN CORPUSCULAR HGB CONC 32 g/dl (33.0-37.0); REDCELL DISTRIBUTION WIDTH-CV 18.4 % (11.5-14.5)
[2021-01-09 05:49] LABS: HEMOGLOBIN 8.1 g/dl (12.5-16.0); MEAN CORPUSCULAR HEMOGLOBIN 28 pg (27.0-31.0)
[2021-01-09 05:52] LABS: PLATELET COUNT 47 K/mm3 (130-400)
[2021-01-09 05:59] LABS: ALBUMIN 1.7 gm/dL (3.5-5.0); BILIRUBIN,TOTAL 2.9 mg/dL (0.0-1.0); CALCIUM 7.6 mg/dL (8.4-10.2); CREATININE, serum 0.8 (0.52-1.25); MAGNESIUM 2.3 mg/dL (1.6-2.3); PHOSPHOROUS 3.3 mg/dL (2.5-4.5); POTASSIUM 4.8 mmol/L (3.4-5.0); TOTAL PROTEIN 5.6 gm/dL (6.4-8.2)
--- NOTE | 2021-01-09 08:00 | NUR ---
Patient sitting up in bed, eyes open. Does not respond to verbal command, alert, but unresponsive. VSS. IV CDI, fluids infusing. Rectal tube CDI, patent. Patient repositioned on left side. Heels floated. Patient total care provided. HOB elevated. Call light within reach
--- NOTE | 2021-01-09 17:14 | NUR ---
Patient has labored breathing and O2 sats in low 80's-90's. Dr Conrad notified and RT notified. Will continue to monitor. Sister at bedside and aware. Call light within reach
[2021-01-09 17:38] LABS: ARTERIAL BLD GAS O2 SATURATION 82.6 % (92-100); ARTERIAL BLD GAS TCO2 CT 22.6; ARTERIAL BLOOD GAS BASE EXCESS 0.8 (-2-2); ARTERIAL BLOOD GAS HCO3 21.8 meq/L (22-26); ARTERIAL BLOOD GAS PCO2 24.9 mmHg (35-45); ARTERIAL BLOOD GAS pH 7.56 (7.35-7.45)
[2021-01-09 17:39] LABS: ARTERIAL BLOOD GAS PO2 45.3 mmHg (80-100)
--- NOTE | 2021-01-09 18:11 | NUR ---
Oxymask placed on the patient and continued monitoring of O2 sats. 7L O2. Patient placed on right side. Rectal tube advanced and sterile water added to the balloon. Patient still nonresponsive, but eyes still open. Doctor aware of the ABG results. Family at the bedside most of the shift. Call light within reach. Door left open
--- NOTE | 2021-01-09 19:22 | NUR ---
CALLED BY RN FOR STAT ABG. OBTAINED AND RESULTS IN PT CHART. DUE TO RESULTS AND PT ON 15 LPM VIA OXYMASK PLACED PT ON AIRVO AND PT ON AT 60 LPM AND 90% FI02. SATURATIONS INCREASED TO THE MID 90'S.
--- NOTE | 2021-01-09 19:22 | NUR ---
VIKRAM BRISENO APRN NOTIFIED OF PATIENTS CONDITION. VIKRAM BRISENO APRN IS COMING TO PATIENTS ROOM TO ASSESS THE PATIENT.
[2021-01-09 19:43] LABS: ARTERIAL BLD GAS O2 SATURATION 86.4 % (92-100); ARTERIAL BLD GAS TCO2 CT 22.6; ARTERIAL BLOOD GAS BASE EXCESS 1.2 (-2-2); ARTERIAL BLOOD GAS HCO3 21.9 meq/L (22-26); ARTERIAL BLOOD GAS pH 7.59 (7.35-7.45)
[2021-01-09 19:44] LABS: ARTERIAL BLOOD GAS PCO2 23.3 mmHg (35-45); ARTERIAL BLOOD GAS PO2 48.7 mmHg (80-100)
[2021-01-09 21:35] LABS: BASO # 0.1 (0.0-0.2); BASO % 0.6 % (0.0-2.0); EOS # 0.1 (0.0-0.7); EOS % 0.6 % (0-4.0); GRAN # 8.8 (1.4-6.5); GRAN % 69.7 % (42.2-75.2); LYMPH % 15.7 % (20.0-51.0); MEAN CELL VOLUME 86 fl (80.0-100.0); MEAN CORPUSCULAR HGB CONC 32 g/dl (33.0-37.0); MONO # 1.6 (0.1-0.6); MONO % 12.8 % (1.7-9.3); PLATELET COUNT 50 K/mm3 (130-400); RED BLOOD COUNT 3.15 M/mm3 (4.10-5.30); REDCELL DISTRIBUTION WIDTH-CV 19.4 % (11.5-14.5)
[2021-01-09 21:37] LABS: HEMATOCRIT 27.1 % (37.0-47.0); HEMOGLOBIN 8.7 g/dl (12.5-16.0); MEAN CORPUSCULAR HEMOGLOBIN 28 pg (27.0-31.0)
[2021-01-09 21:39] LABS: ALBUMIN 1.9 gm/dL (3.5-5.0); BILIRUBIN,TOTAL 2.9 mg/dL (0.0-1.0); CALCIUM 7.9 mg/dL (8.4-10.2); CREATININE, serum 1.01 (0.52-1.25); POTASSIUM 4.8 mmol/L (3.4-5.0); TOTAL PROTEIN 6.1 gm/dL (6.4-8.2)
--- NOTE | 2021-01-09 21:43 | NUR ---
Patient was brought down by Monalisa OLEA at 845pm. She was not alert or oriented. She eyes were dialated but responsive. She was on Airvo and oxygen saturation was 98%. Her blood pressure was 111/71. She was rapidly blinking her eyes but not responding to commands. She gazes both eyes to the left but never straight ahead or to the right. He eyes doesn't follow commands either. At 2100 the Anesthsiologist arrived for a Rapid Intubation. Two RT's was at the bedside along with Daniel OLEA and myself. The patient was being bagged and intubation was complete by 2106. The patient responded well to the intubation with no complications. Her blood pressure dropped to 70/40 and we initated Albumin. We will repeat ABG's soon.
[2021-01-09 22:21] LABS: ARTERIAL BLD GAS O2 SATURATION 98.7 % (92-100); ARTERIAL BLD GAS TCO2 CT 25.1; ARTERIAL BLOOD GAS BASE EXCESS 2.2 (-2-2); ARTERIAL BLOOD GAS HCO3 24.2 meq/L (22-26); ARTERIAL BLOOD GAS PCO2 28.7 mmHg (35-45); ARTERIAL BLOOD GAS pH 7.54 (7.35-7.45)
[2021-01-09 22:23] LABS: ARTERIAL BLOOD GAS PO2 136.8 mmHg (80-100)
[2021-01-09 22:28] LABS: INR 2.5 (0.8-3.0); PROTHROMBIN TIME 28.7 SECONDS (9.7-12.8)
--- NOTE | 2021-01-09 22:56 | NUR ---
Vancomycin Initial Dosing Pharmacy Note Ordering provider: Fabrizio Doss MD 55 yo F Indication / Duration: HAP / 7 days Goal: 15-20 Hx: None identified BMI: 34.1 Wt: 95.8 kg adjBW: 74 kg SCr: 1.01 adjBW estCrCl ~ 73 ml/min t 1/2 ~ 11 h Tmax: 98.6 Pt now requiring intubation WBC: 12.6 01/02/21 BCx2 NGx5 days 01/02/21 Unine Cx reported Kleb pneumo Loaded pt with Vanco 2 gm x1 (~21 mg/kg). Will start a maintenance regimen of 1 gm q12h. Due to pt's elevated BMI, pt at risk for accumulation and not following population based kinetics. Will follow renal function, micro, and levels for need to adjust therapy. Thank you for this dosing consult!
[2021-01-10] VITALS (332 sets, daily range): BP systolic 72–112; BP diastolic 25–69; PULSE 80–103; TEMP 98.9–99; O2SAT 73–100
[2021-01-10 05:42] LABS: MEAN CELL VOLUME 90 fl (80.0-100.0); MEAN CORPUSCULAR HGB CONC 31 g/dl (33.0-37.0); PLATELET COUNT 53 K/mm3 (130-400); RED BLOOD COUNT 2.76 M/mm3 (4.10-5.30); REDCELL DISTRIBUTION WIDTH-CV 19.9 % (11.5-14.5)
[2021-01-10 05:44] LABS: HEMATOCRIT 24.9 % (37.0-47.0); HEMOGLOBIN 7.6 g/dl (12.5-16.0); MEAN CORPUSCULAR HEMOGLOBIN 28 pg (27.0-31.0)
[2021-01-10 05:45] LABS: ARTERIAL BLD GAS O2 SATURATION 99.1 % (92-100); ARTERIAL BLD GAS TCO2 CT 17.9; ARTERIAL BLOOD GAS HCO3 16.9 meq/L (22-26); ARTERIAL BLOOD GAS PCO2 32.5 mmHg (35-45); ARTERIAL BLOOD GAS pH 7.34 (7.35-7.45)
[2021-01-10 05:47] LABS: ARTERIAL BLOOD GAS PO2 166.9 mmHg (80-100)
[2021-01-10 05:48] LABS: ALBUMIN 1.9 gm/dL (3.5-5.0); BILIRUBIN,TOTAL 3.3 mg/dL (0.0-1.0); CALCIUM 7.2 mg/dL (8.4-10.2); CREATININE, serum 1.07 (0.52-1.25); MAGNESIUM 1.9 mg/dL (1.6-2.3); PHOSPHOROUS 4.4 mg/dL (2.5-4.5); POTASSIUM 3.8 mmol/L (3.4-5.0); TOTAL PROTEIN 5.7 gm/dL (6.4-8.2)
[2021-01-10 06:01] LABS: BAND 39 % (0-10); LYMPHOCYTE 13 % (20.0-51.0); NEUTROPHILS 42 % (42.0-75.2)
[2021-01-10 06:02] LABS: HYPOCHROMIA 1+; POIKILOCYTOSIS 1+
[2021-01-10 06:03] LABS: OVALOCYTES 1+; PLATELET ESTIMATE DECREASED (NORMAL)
[2021-01-10 06:04] LABS: TARGET CELLS 1+
[2021-01-10 06:53] LABS: INR 2.8 (0.8-3.0); PROTHROMBIN TIME 31.2 SECONDS (9.7-12.8)
--- NOTE | 2021-01-10 08:42 | NUR ---
Family at bedside to see patient. Stated that they want to see her before making her "comfortable". Patient currently a Full code. Dr. Bishop notified that family would like to speak with him and at this time they are planning to go in the direction of comfort care.
--- NOTE | 2021-01-10 09:08 | NUR ---
MTN notified of patient status.
--- NOTE | 2021-01-10 09:16 | NUR ---
Discussed patient status with [facility]. All questions addressed at this time.
--- NOTE | 2021-01-10 09:16 | NUR ---
Dr. Bishop at bedside to discuss patient care and status with family.
--- NOTE | 2021-01-10 09:35 | NUR ---
Dr. Elias at bedside to assess patient and speak with family. Family has agreed to DNR/DNI and transition to comfort care.
--- NOTE | 2021-01-10 09:51 | NUR ---
[facility] referral #[id number], they decline organs, we are to call with clinical TOD.
--- NOTE | 2021-01-10 11:00 | NUR ---
PT EXTUBATED AT 1100 TO COMFORT CARE PER FAMILY WISHES AND DR RANDOLPH'S ORDERS.
--- NOTE | 2021-01-10 11:00 | NUR ---
Extubated with RT at 1100. PRN morphine administerd prior to extubation for comfort.
--- NOTE | 2021-01-10 13:28 | NUR ---
MTN updated on TOD. May not release body at this time.
--- NOTE | 2021-01-10 15:43 | NUR ---
[facility] states family declined donation, may release body to home.
--- NOTE | 2021-01-10 16:22 | NUR ---
[facility] ([phone]) [place], [place] was notified of patient .
--- NOTE | 2021-01-10 17:41 | NUR ---
Patient transfered to home with home personnel at this time. All paperwork signed per protocol.
--- NOTE | 2021-01-11 10:22 | NUR ---
The patient on 01/10.
== END 2021-01-10 17:43 | disposition expired | DRG 871 ==
LOC: COL.ER 08:02 → ICU 11:29 → MEDICAL 11:29 → ICU 16:18 → MEDICAL 01-07 10:41 → ICU 01-09 20:43
PROVIDERS: Family Medicine; Nurse Practitioner Family; Physician Assistant; Student in an Organized Health Care Education/Training Program; Surgery; ADMIT Internal Medicine
PROC: 0W9G3ZZ Drainage of Peritoneal Cavity, Percutaneous Approach (ICD-10-PCS; principal; 2021-01-02)
PROC: 0DJ08ZZ Inspection of Upper Intestinal Tract, Via Natural or Artificial Opening Endoscopic (ICD-10-PCS; 2021-01-08)
PROC: 0BH17EZ Insertion of Endotracheal Airway into Trachea, Via Natural or Artificial Opening (ICD-10-PCS; 2021-01-09)
PROC: 5A1935Z Respiratory Ventilation, Less than 24 Consecutive Hours (ICD-10-PCS; 2021-01-09)
PROC: 02HV33Z Insertion of Infusion Device into Superior Vena Cava, Percutaneous Approach (ICD-10-PCS; 2021-01-09)
PROC: 5A09357 Assistance with Respiratory Ventilation, Less than 24 Consecutive Hours, Continuous Positive Airway Pressure (ICD-10-PCS; 2021-01-09)
DX: A41.9 Sepsis, unspecified organism (principal); K72.00 Acute and subacute hepatic failure without coma; J96.01 Acute respiratory failure with hypoxia; N39.0 Urinary tract infection, site not specified; E72.20 Disorder of urea cycle metabolism, unspecified; E46 Unspecified protein-calorie malnutrition; E87.2 Acidosis; K70.31 Alcoholic cirrhosis of liver with ascites; Z20.822 Contact with and (suspected) exposure to COVID-19; Z51.5 Encounter for palliative care; Z66 Do not resuscitate; I95.9 Hypotension, unspecified; E80.6 Other disorders of bilirubin metabolism; D69.6 Thrombocytopenia, unspecified; E87.6 Hypokalemia; G25.3 Myoclonus; R56.9 Unspecified convulsions; D50.0 Iron deficiency anemia secondary to blood loss (chronic); R00.0 Tachycardia, unspecified; E16.2 Hypoglycemia, unspecified; B96.1 Klebsiella pneumoniae [K. pneumoniae] as the cause of diseases classified elsewhere; Z68.26 Body mass index [BMI] 26.0-26.9, adult; R53.81 Other malaise; Z79.1 Long term (current) use of non-steroidal anti-inflammatories (NSAID); Z98.84 Bariatric surgery status; Z88.8 Allergy status to other drugs, medicaments and biological substances
CPT/HCPCS: 99223-AI; 99232-AI; 99233-AI; A4217; C1751; C9113; C9254; J0610; J0692; J0696; J1120; J1170; J1940; J1953; J2060; J2250; J2270; J2370; J2543; J2704; J3010; J3370; J3411; J3430; J3475; J3480; J7030; J7040; J7050; J7131; P9016; P9040; P9047; Q9967